=== PATIENT | female | born 1980 | race Caucasian/White ===

== ENCOUNTER 2017-06-23 20:32 | Emergency (ER) | payer SELFPAY ==
[2017-06-23] MEDS: ACETAMINOPHEN 500 MG TAB PO (21:00)
== END 2017-06-23 22:15 | disposition home or self-care (01) ==
LOC: FTE 20:32
DX: S93.401A Sprain of unspecified ligament of right ankle, initial encounter (principal); S20.219A Contusion of unspecified front wall of thorax, initial encounter; S09.90XA Unspecified injury of head, initial encounter; R51 Headache; W01.0XXA Fall on same level from slipping, tripping and stumbling without subsequent striking against object, initial encounter; Y92.9 Unspecified place or not applicable
CPT/HCPCS: 70450; 71100; 73610-RT; 99284-25